=== PATIENT | female | born 1965 | race Caucasian/White ===

== ENCOUNTER 2017-07-08 09:30 | Emergency (ER) | payer BC ==
[~2017-07-08] VITALS: Ht 165.1 cm; Wt 68.7 kg
[2017-07-08 09:33] VITALS: PULSE 87; TEMP 36.7; O2SAT 99; Ht 165.1 cm; Wt 68.7 kg
[2017-07-08] MEDS ORDERED: MIRA1TAB3 PO (10:27)
--- NOTE | 2017-07-08 10:29 | DIAGNOSTIC IMAGING REPORT ---
R ANKLE MIN 3 VIEWS ROUTINE CLINICAL HISTORY: right ankle pain trauma. Pain. COMPARISON: None. DISCUSSION: Soft tissue edema over the lateral malleolus. No acute bony abnormality. The study is specifically negative for fracture or dislocation. Subtalar joint is intact. IMPRESSION: Lateral nonspecific soft tissue edema. No acute bony abnormality The above report was generated using voice recognition software. It may contain grammatical, syntax or spelling errors. Electronically signed by: Cam Reed M.D. 07/08/2017 10:27 AM Dictated Date/Time: 07/08/2017 10:26 AM
--- NOTE | 2017-07-08 10:45 | EMERGENCY ROOM VISIT NOTE ---
ED Visit Note First contact with patient: 09:41 CHIEF COMPLAINT: Right Ankle pain HISTORY OF PRESENT ILLNESS: This 51-year-old female patient presents to the emergency department, ambulatory, one day after sustaining an injury to the right ankle and foot with a twisting, inversion motion while walking down the steps. The patient states she missed the last step, and injured her ankle. She did not fall. The patient complains of only tenderness on palpation along the outside of the ankle. The patient denies pain of the foot. The patient rates the pain as minimal and 2/10. The patient is able to bear weight on the foot.Pain is worse with movement, weight bearing, palpation, and the dependent position. No knee pain, the patient is able to move their toes. No numbness or weakness of the foot, no laceration. The patient has not had a previous fracture to this ankle. The patient has taken Advil for the pain. The patient denies any other injury. REVIEW OF SYSTEMS: A 6 system review of systems was completed with positives and pertinent negatives listed in the HPI. ALLERGIES: None MEDICATIONS: Myrbetriq PMH: None SOCIAL HISTORY: The patient lives locally with family. She denies drug, alcohol , tobacco use. PHYSICAL EXAM: Vital Signs: Reviewed Nurse's notes, vital signs stable. GENERAL : This is a 51-year-old female, no acute distress, but appears in pain, well- developed, well-nourished. MENTAL STATUS: Alert, oriented to person place and time, and cooperative. MUSCULOSKELETAL: The left ankle is not swollen, but is mildly tender over the lateral malleolus, but the skin is intact and there is no ligamentous instability. There is no fifth metatarsal tenderness. There is no tenderness over the rest of the foot. There is no calf or tibia/fibular tenderness. There is no visual deformity. The foot and toes are warm and well- perfused. Dorsalis pedis pulse 2+. Sensation to pain and light touch is intact. Capillary refill less than 2 seconds. RADIOLOGY: R ANKLE MIN 3 VIEWS ROUTINE CLINICAL HISTORY: right ankle pain trauma. Pain. COMPARISON: None. DISCUSSION: Soft tissue edema over the lateral malleolus. No acute bony abnormality. The study is specifically negative for fracture or dislocation. Subtalar joint is intact. IMPRESSION: Lateral nonspecific soft tissue edema. No acute bony abnormality The above report was generated using voice recognition software. It may contain grammatical, syntax or spelling errors. Electronically signed by: Cam Reed M.D. 07/08/2017 10:27 AM Dictated Date/Time: 07/08/2017 10:26 AM EMERGENCY DEPARTMENT COURSE: I examined the patient. She was offered pain medication and declines. X-rays of the Right ankle were reviewed by myself and read by radiology and reveal no acute fracture. The patient was offered a gel splint and crutches, but declines. The patient was discharged home in good condition. DIFFERENTIAL DIAGNOSIS: Sprain, strain, fracture, contusion, avulsion fracture, and others DIAGNOSIS: Right ankle sprain Current/Historical Medications Scheduled Mirabegron (Myrbetriq Er), 50 MG PO DAILY Allergies Coded Allergies: No Known Allergies (Unverified , 07/08/17) Vital Signs Date Time Temp Pulse Resp B/P (MAP) Pulse Ox O2 Delivery O2 Flow Rate FiO2 07/08/17 11:01 135/76 07/08/17 09:33 36.7 87 18 120/77 99 Room Air Departure Information Impression Primary Impression: Right ankle sprain Dispostion Home / Self-Care Condition GOOD Referrals Chaim Judge M.D. (PCP) Patient Instructions ED Sprain Ankle, My [facility] Additional Instructions You have been treated in the Emergency Department for an Ankle sprain. Use ice/elevation/rest to help with swelling and pain. X-ray was negative for acute fracture. For pain control, you can use the following [id number]-fvkqxht medicines (if >12 yo): Ibuprofen(Motrin, Advil) may be used for fever or pain. Use 600mg every six hours as needed. Take with food. Avoid using more than 2400mg in a 24 hour period. Do not use 2400mg per day for more than three consecutive days without physician direction. Prolonged inappropriate use can lead to stomach upset or ulcers. (AND/OR) Acetaminophen(Tylenol) may be used for fever or pain. Use 1000mg every six hours as needed. Avoid using more than 3000mg in a 24 hour period. If this is a recent injury (<24 hrs), ice can be applied to the area of pain for the first 3 days to help decrease pain and inflammation. Follow-up with your PCP within the next week, or sooner if no improvement in your symptoms. You may wrap the ankle in an ROOSEVELT wrap for comfort. Return to the Emergency Department if your current symptoms worsen despite treatment course outlined above, or if you develop any of the following symptoms : intractable pain despite aforementioned treatment course or new onset of numbness or tingling of the foot. Problem Qualifiers Primary Impression: Right ankle sprain Encounter type: initial encounter Involved ligament of ankle: unspecified ligament Qualified Codes: S93.401A - Sprain of unspecified ligament of right ankle, initial encounter
[2017-07-08 11:01] VITALS: BP 135/76
== END 2017-07-08 11:02 | disposition home or self-care (01) ==
LOC: C.EDB 09:31
DX: S93.401A Sprain of unspecified ligament of right ankle, initial encounter (principal); W10.9XXA Fall (on) (from) unspecified stairs and steps, initial encounter; Y92.9 Unspecified place or not applicable; Z79.899 Other long term (current) drug therapy

== ENCOUNTER 2023-12-26 17:17 | Observation (INO) ==
--- NOTE | 2023-12-26 17:27 | ED Triage Note ---
Date of Service December 26, 2023 Provider in Triage Author: Dee Prieto History of Present Illness This patient was briefly evaluated while in triage. An abbreviated physical exam was performed. This patient is a 58-year-old Female who presents to the ED for evaluation of chest pain and SOB mostly on the left side. Symptoms have been constant for the past couple days. She smokes, but no vaping. No personal history of blood clot. No personal history of heart problems. She took a full dose aspirin earlier today with mild improvement of her symptoms. Denies fevers, cough, or URI symptoms. Physical Exam GENERAL: Non-toxic and in no acute distress. HEENT: Pupils equal. No obvious scleral icterus. HEART: Regular rate and rhythm. LUNGS: Clear to auscultation. No accessory muscle use. ABDOMEN: Soft, non-tender. NEURO: Alert and oriented. No obvious neurological deficits on quick neuro exam. Initial orders for labs and / or imaging were placed and patient was placed in the waiting area until a bed is available. Please see further documentation for the full ED course. MDM / Impression Impression Impression: Chest pain Impression: Chest pain Qualifiers: Chest pain type: unspecified Qualified Code(s): R07.9 - Chest pain, unspecified
[2023-12-26] MEDS: SODIUM CHLORIDE 0.9% 500 ML IV STA (17:32)
[2023-12-26 17:51] LABS: Basophils # (auto) 0.05 K/uL (0.00-0.20); Basophils % (auto) 0.5 %; Eosinophils # (auto) 0.17 K/uL (0.00-0.50); Eosinophils % (auto) 1.8 %; Hematocrit (blood only) 41.3 % (37.0-47.0); Hemoglobin 13.6 g/dl (12.0-16.0); Immature Granulocytes # (auto) 0.04 K/uL (0.01-0.20); Immature Granulocytes % (auto) 0.4 %; Lymphocytes # (auto) 2.58 K/uL (1.20-3.40); Lymphocytes % (auto) 26.6 %; Mean Corpuscular Hemoglobin 28.2 pg (25.0-34.0); Mean Corpuscular Hgb Conc 32.9 g/dL (32.0-36.0); Mean Corpuscular Volume 85.5 fL (80.0-100.0); Mean Platelet Volume 9.7 fL (9.4-12.4); Monocytes # (auto) 0.52 K/uL (0.11-0.59); Monocytes % (auto) 5.4 %; Neutrophils # (auto) 6.34 K/uL (1.40-6.50); Neutrophils % (auto) 65.3 %; Platelet Count 294 K/uL (130-400); RDW Coefficient of Variation 13.5 % (11.5-14.5); RDW Standard Deviation 42.1 fL (36.4-46.3); Red Blood Count 4.83 M/uL (4.20-5.40)
[2023-12-26 18:10] LABS: Albumin Globulin Ratio 1.3 (0.9-2); Albumin Level 4.4 gm/dl (3.4-5.0); BUN Creatinine Ratio 20.5 (10-20); Bilirubin,Total 0.4 mg/dl (0.2-1.0); Calcium 9.5 mg/dl (8.6-10.3); Creatinine Clr Calc Pharmacy 76.2 ml/min; Est GFR (African American) 91.4 ml/min; Est GFR (Non-African American) 78.8 ml/min; Globulin 3.4 gm/dl (2.5-4.0); Potassium 3.7 mmol/L (3.5-5.1); Total Protein 7.8 gm/dl (6.0-8.3)
[2023-12-26 18:16] LABS: Troponin I High Sensitivity 3.7 pg/ml (0-14)
[2023-12-26 18:18] LABS: D Dimer 400 ug/L FEU (0-500); Partial Thromboplastin Time 26 Seconds (21-31); Prothrombin Time 10.4 Seconds (9.0-12.0)
--- NOTE | 2023-12-26 18:39 | XRay Report ---
XR chest 1V portable CLINICAL HISTORY: Chest pain, nonspecific TECHNIQUE: Single frontal radiograph of the chest was obtained. Comparison: Comparison is made to chest radiograph 09/11/2020 FINDINGS: No lines and tubes are seen. The cardiomediastinal silhouette is normal. The lungs are clear. No evid ence of pleural effusion or pneumothorax. IMPRESSION: No acute chest disease. ACT 112: Negative or not required by law. Electronically signed by: Saurav Lobo M.D. 12/26/2023 6:38 PM
[2023-12-26] MEDS: NITROGLYCERIN SL 0.4 MG/TAB TAB SL STA (20:09)
[2023-12-26] MEDS: ASPIRIN CHEW 324 MG PO STA (20:09)
[2023-12-26] MEDS: SODIUM CHLORIDE 0.9% 1,000 ML IV ONE (20:10)
[2023-12-26] MEDS: ALUMINUM/MAGNESIUM SUSP 30 ML UDC PO STA (20:10)
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
[2023-12-26] MEDS: OPTIRAY 320 125ml IV ONE (20:58)
--- NOTE | 2023-12-26 21:37 | CT Scan Report ---
CT angio chest PE protocol CLINICAL HISTORY: PE TECHNIQUE: Multidetector row helical CT of the chest was performed with angiographic protocol. [place] l and sagittal reformations were obtained. Coronal and sagittal MIPS were obtained from the axial mahendra a set and were submitted for review. Automated dose lowering techniques and/or adjustment according to patient size were utilized for this exam. CT DOSE: 730.16 mGy.cm Comparison: Comparison is made to chest radiograph 01/12/2024 FINDINGS: Lungs and pleura: Atelectasis versus scarring is seen in the dependent portions of the lungs. Heart and pericardium: Heart size is normal. No pericardial effusion. Vessels: No evidence of pulmonary embolism. Mediastinum and maximus: Subcentimeter lymph nodes are seen. Chest wall and lower neck: Small thyroid nodules are noted which do not require follow-up by ACR roni carroll. Abdomen: A hiatal hernia is seen. Bones: Degenerative changes in the thoracic spine. IMPRESSION: No acute abnormality and in particular no evidence of pulmonary embolus. ACT 112: Negative or not required by law. Electronically signed by: Saurav Lobo M.D. 12/26/2023 9:35 PM
[2023-12-26] MEDS ORDERED: ACETAMINOPHEN 325 MG TAB PO PRN (22:13)
[2023-12-26] MEDS ORDERED: ONDANSETRON INJ 2 MG/ML 2 ML VIAL IV PRN (22:13)
[2023-12-26] MEDS ORDERED: ALBUTEROL HFA 8 GM INHALER INH PRN (22:23)
[2023-12-26] MEDS: ENOXAPARIN INJ 40 MG/0.4 ML SYR SQ SCH (22:47)
[2023-12-26] MEDS: SODIUM BICARBONATE 650 MG TAB PO SCH (22:48)
[2023-12-26 23:22] LABS: Influenza A virus by PCR Negative (Neg); Influenza B virus by PCR Negative (Neg); RSV by PCR Negative (Neg); SARS CoV2 RNA(COVID-19) Ceph NEGATIVE (Negative)
[2023-12-26] MEDS: SODIUM BICARBONATE 650 MG TAB PO ONE (23:29)
[2023-12-26] MEDS: LIDOCAINE 5% 1 PATCH TD STA (23:32)
[2023-12-26] MEDS: CYCLOBENZAPRINE HCL 5 MG TAB PO STA (23:32)
[2023-12-27] MEDS ORDERED: IBUPROFEN 600 MG TAB PO PRN (00:30)
[2023-12-27 03:18] LABS: Appearance Urine Clear (Clear); Bilirubin Urine Negative (Negative); Blood Urine Trace (Negative); Cast Urine Automated 0-2 /lpf (0-2); Color Urine Yellow; Epithelial Cell Urine Auto 0-2 /hpf (0-2); Glucose Urine UA Negative (Negative); Ketones Urine Negative (Negative); Leukocyte Esterase Urine Negative (Negative); Nitrite Urine Positive (Negative); Protein Urine Trace (Negative); Specific Gravity Urine > 1.045 (1.000-1.030); Urobilinogen Urine Negative (Negative); WBC Urine Automated 21-50 /hpf (0-5); pH Urine 6.5 (4.5-7.5)
[2023-12-27 03:26] LABS: Bacteria Urine Automated 1+ (None Seen)
[2023-12-27 04:01] LABS: Basophils # (auto) 0.04 K/uL (0.00-0.20); Basophils % (auto) 0.5 %; Eosinophils # (auto) 0.29 K/uL (0.00-0.50); Eosinophils % (auto) 3.8 %; Hematocrit (blood only) 35.2 % (37.0-47.0); Hemoglobin 11.5 g/dl (12.0-16.0); Immature Granulocytes # (auto) 0.03 K/uL (0.01-0.20); Immature Granulocytes % (auto) 0.4 %; Lymphocytes # (auto) 3.09 K/uL (1.20-3.40); Mean Corpuscular Hgb Conc 32.7 g/dL (32.0-36.0); Mean Corpuscular Volume 85.9 fL (80.0-100.0); Mean Platelet Volume 9.9 fL (9.4-12.4); Monocytes % (auto) 5.2 %; Neutrophils # (auto) 3.88 K/uL (1.40-6.50); Neutrophils % (auto) 50.1 %; Platelet Count 245 K/uL (130-400); RDW Coefficient of Variation 13.6 % (11.5-14.5); RDW Standard Deviation 42.4 fL (36.4-46.3); White Blood Count 7.73 K/ul (4.8-10.8)
[2023-12-27 04:06] LABS: BUN Creatinine Ratio 26.8 (10-20); Calcium 8.3 mg/dl (8.6-10.3); Creatinine Clr Calc Pharmacy 117.2 ml/min; Est GFR (African American) 120.8 ml/min; Est GFR (Non-African American) 104.2 ml/min; Potassium 3.4 mmol/L (3.5-5.1)
[2023-12-27] MEDS: LORATADINE 10 MG TAB PO SCH (08:37)
[2023-12-27] MEDS: CYCLOBENZAPRINE HCL 5 MG TAB PO SCH (08:37)
[2023-12-27] MEDS: SODIUM BICARBONATE 650 MG TAB PO SCH (08:38)
[2023-12-27] MEDS: POTASSIUM CHLORIDE CRTAB 20 MEQ TABCR PO STA (11:18)
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
[2023-12-27] MEDS: METOPROLOL TARTRATE 1 MG/ML VIAL IV ONE (14:25)
[2023-12-27] MEDS: DOBUTamine HCL 12.5 MG/ML 20 ML VIAL IV ONE (14:25)
[2023-12-27] MEDS: ATROPINE SULFATE 0.1 MG/ML 10ML SYR IV ONE (14:25)
--- NOTE | 2023-12-27 17:20 | XCELERA ---
[id number]
--- NOTE | 2023-12-27 17:22 | Discharge Summary ---
Discharge Summary Date of Service December 27, 2023 Principal Dx & Hospital Course #1 = Principal Diagnosis (1) Chest pain: Pleuritic chest pain and SOB x 3 days Troponin normal x 2 EKG normal sinus rhythm without acute changes Chest CTA did not show pulmonary embolism pericardial effusion or other changes within the chest COVID, flu, RSV ordered, negative Discussed alternatives this is not associate with any dysphagia dyspepsia or dyne aphasia. She was seeing her chiropractor in the past and does have multiple skeletal complaints likely musculoskeletal. The patient is large degree of concern we did pursue stress testing. Due to foot drop patient did not walk on a treadmill subsequently dobutamine stress echo was ordered as results were negative with normal echocardiogram normal blood pressure response normal wall motion movement. Subsequently we ruled out chest pain being from cardiac or pulmonary source. He likely could be musculoskeletal recommend follow-up with primary care provider she requested a primary. Provider from [place] [id number] was arranged (2) Tobacco use: Current tobacco cigarette smoker; 1 PPD Smoking cessation offered especially in the context of being worried about having coronary disease Admission HPI Per Admitting Provider Monica is a 58-year-old female with PMH of nephrolithiasis and neurogenic bladder. She presented for constant chest pain and SOB x 3 days. The pain is located under her left breast; no radiation to the left shoulder left arm or back. SOB is both at rest and with exertion; this is new for her. Chest pain and SOB are positional; worse when laying flat on her back. CP is pleuritic; patient reports that even shallow breaths are now painful. Patient took aspirin today at 1330 for the pain, which did not help. Nitro in the ED did not alleviate her pain. Patient took all of her regular medications last night; no recent change in medications. No PMH of [place], DVT/PE, or stroke. No prior episodes like this one. Patient is a current tobacco cigarette smoker; 1 PPD. She does endorse occasional alcohol use; she drinks around 2 martinis on Tuesday. No supplemental oxygen at home. No sick contacts. No recent injuries or trauma to the chest wall. Patient is hypertensive at 142/91 and tachycardic around 101 bpm at time of admission. ED course: Aspirin 324 mg p.o. Nitrostat 0.4 mg SL Maalox 15 mL p.o. NSS 1500 mL IV ROS: Patient endorses night-sweats (ongoing), left-sided chest pain, SOB both at exertion and with rest, and pleuritic CP. Patient denies fever, chills, dizziness, lightheadedness, CHOUDHARY, changes in vision, left arm/shoulder pain, cough, hemoptysis, abdominal pain, N/V/D, changes in urinary/bowel habits, or numbness/tingling/pain in the arms or legs. Discharge Exam Please see today's progress note examination was normal Updated Medication List Medication Instructions Recorded Confirmed Type albuterol sulfate 90 mcg/actuation 1 inh inhalation Q6 PRN SHORT OF 05/17/19 12/26/23 History breath activated powder inhaler BREATH lactobacillus combination no.4 3 3,000 mmu cells PO QPM 05/17/19 12/26/23 History billion cell capsule (Probiotic) Liver Supplement 1 cap PO QPM 09/10/20 12/26/23 History loratadine 10 mg tablet (Claritin) 10 mg PO DAILY 12/30/20 12/26/23 History calcium carbonate 1,000 mg PO DAILY 04/26/23 12/12/23 History sodium bicarbonate 650 mg tablet 650 mg PO HS 12/26/23 12/26/23 History Hospital Stay Data Consultations 12/26/23 20:02 ED Decision to Admit Stat Diagnostic Imagining Performed 12/26/23 20:43 CT for pulmonary embolism PE [CT angio chest PE protocol] Stat Pending Results Patient Have Any Pending Studies at Discharge: No Discharge Instructions Given to Patient (Per Discharging Provider) congratulations you did have a normal stress test as you requested we have made an appointment with a [facility] provider, please follow up to continue to evuate your symptoms please strongly consider stopping smoking Total Time Total Time Spent Total Time Spent (In Minutes): It required greater than 30 minutes to prepare this patient for discharge. Coding Level of Care Code 29872 INP/OBS DISCH >30 MIN Diagnoses Chest pain R07.9 Chest pain type: unspecified Tobacco use Z72.0
--- NOTE | 2023-12-28 06:23 | Electrocardiogram Report ---
Test Reason : Blood Pressure : / mmHG Vent. Rate : 102 BPM Atrial Rate : 102 BPM P-R Int : 130 ms QRS Dur : 070 ms QT Int : 346 ms P-R-T Axes : 063 040 047 degrees QTc Int : 450 ms Sinus tachycardia Otherwise normal ECG When compared with ECG of 11-SEP-2020 10:21, No significant change was found Confirmed by Vinny Ackerman ([id number]) on 12/28/2023 6:23:11 AM Referred By: REFERRED SELF Confirmed By:Vinny Ackerman
--- NOTE | 2023-12-28 22:35 | Electrocardiogram Report ---
Test Reason : Blood Pressure : / mmHG Vent. Rate : 091 BPM Atrial Rate : 091 BPM P-R Int : 120 ms QRS Dur : 084 ms QT Int : 376 ms P-R-T Axes : 040 036 048 degrees QTc Int : 462 ms Normal sinus rhythm Normal ECG When compared with ECG of 26-DEC-2023 17:30, No significant change was found Confirmed by Vinny Ackerman ([id number]) on 12/28/2023 10:35:23 PM Referred By: REFERRED SELF Confirmed By:Vinny Ackerman
== END 2023-12-27 17:40 | disposition home or self-care (01) ==
LOC: ED 17:17 → EDINP 20:55 → SUATTDRO 20:55 → INTOOBSV 20:55 → EDINP 22:13

== ENCOUNTER 2025-01-22 11:59 | Inpatient (IN) ==
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
[2025-01-22] MEDS: SODIUM CHLORIDE 0.9% 500 ML IV ONE (12:34)
[2025-01-22] MEDS: ONDANSETRON INJ 2 MG/ML 2 ML VIAL ONE (12:34)
[2025-01-22] MEDS: ONDANSETRON INJ 2 MG/ML 2 ML VIAL IV STA (12:35)
[2025-01-22 12:54] LABS: Hematocrit (blood only) 43.6 % (37.0-47.0); Hemoglobin 14.2 g/dl (12.0-16.0); Immature Granulocytes # (auto) 0.17 K/uL (0.01-0.20); Immature Granulocytes % (auto) 0.9 %; Mean Corpuscular Hemoglobin 27.6 pg (25.0-34.0); Mean Corpuscular Volume 84.8 fL (80.0-100.0); Platelet Count 292 K/uL (130-400); RDW Standard Deviation 42.7 fL (36.4-46.3); Red Blood Count 5.14 M/uL (4.20-5.40); White Blood Count 19.60 K/ul (4.8-10.8)
--- NOTE | 2025-01-22 13:11 | CT Scan Report ---
ABDOMEN AND PELVIS CT WITHOUT CONTRAST CT DOSE: 919.23 mGy.cm HISTORY: Acute has abdominal pain with urinary retention Urinary retention POD #1 R laser litho w/ s tent TECHNIQUE: Multiaxial CT images of the abdomen and pelvis were performed without contrast. A dose lo wering technique was utilized adhering to the principles of ALARA. COMPARISON STUDY: CT 03/13/2019, August 05, 2021 FINDINGS: Clear lung bases. No pneumatosis or pneumoperitoneum. The unenhanced spleen, pancreas, gall bladder and adrenal glands are unremarkable. There are a few hypodense foci within the liver suggesti ve of probable cysts measuring up to 1.5 cm. Numerous nonobstructing calculi of the kidneys measure up to approximately 5 mm bilaterally. There is mild right-sided hydroureteronephrosis with a ureteral stent in place. No ureteral calculi. Air note d within the superior pole collecting system of the right kidney. Mild associated perinephric and per iureteral stranding. There are a few scattered hypodense foci of the right kidney measuring up to 1.6 cm, possibly cysts. Decompressed bladder with Fabian catheter in place. Small amount of intraluminal air. Atherosclerosis of the aorta. Subcentimeter retroperitoneal nodes. Hysterectomy. Moderate coloni c fecal retention. 10 cm segment of mid transverse colon demonstrates circumferential wall thickening with adjacent pericolonic stranding and luminal narrowing. Mesenteric lymph nodes measure up to 9 x 8 mm. Normal appendix. No acute fracture. 12 mm anterolisthesis L5 on S1 with chronic pars defects. IMPRESSION: 1. Right ureteral stent in place with mild hydroureteronephrosis and perinephric inflammatory strandi ng. Correlate with urinalysis. 2. Numerous nonobstructing bilateral renal calculi. No ureteral calculi identified. 3. Wall thickening of the mid transverse colon is suspicious for a nonspecific colitis with mild melanie cent subcentimeter lymph nodes. Follow-up colonoscopy recommended to exclude a mucosal malignancy. 4. No bowel obstruction or pneumoperitoneum. ACT 112: Negative or not required by law. The above report was generated using voice recognition software. It may contain grammatical, syntax o r spelling errors. Electronically signed by: David West M.D. 01/22/2025 1:10 PM
[2025-01-22 13:13] LABS: Alanine Aminotransferase 13.0 U/L (7-52); Albumin Globulin Ratio 1.4 (0.9-2); Alkaline Phosphatase 138.0 U/L (34-104); Anion Gap 12.0 (3-11); Bilirubin,Total 0.5 mg/dl (0.2-1.0); Blood Urea Nitrogen 16.0 mg/dl (6-23); Calcium 9.7 mg/dl (8.6-10.3); Carbon Dioxide 24.0 mmol/L (21-32); Chloride 100.0 mmol/L (98-107); Creatinine Clr Calc Pharmacy 69.1 ml/min; Globulin 3.7 gm/dl (2.5-4.0); Glucose 102.0 mg/dl (70-99(Fasting)); Lipase 161.0 U/L (11-82); Potassium 3.3 mmol/L (3.5-5.1); Sodium 136.0 mmol/L (136-145); Total Protein 8.7 gm/dl (6.0-8.3)
[2025-01-22 13:39] LABS: Appearance Urine Cloudy (Clear); Glucose Urine UA 1+ (Negative)
[2025-01-22] MEDS: cefTRIAXone SODIUM 2,000 MG/50 ML BAG IV STA (14:14)
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
[2025-01-22] MEDS ORDERED: POLYETHYLENE (MIRALAX) 17 GM PACK PO PRN (17:05)
[2025-01-22] MEDS ORDERED: ONDANSETRON INJ 2 MG/ML 2 ML VIAL IV PRN (17:05)
[2025-01-22] MEDS: SODIUM CHLORIDE 0.9% 1,000 ML IV SCH (18:25)
[2025-01-22] MEDS: ACETAMINOPHEN 325 MG TAB PO PRN (19:23)
[2025-01-22] MEDS: TAMSULOSIN HCL 0.4 MG CAP PO SCH (19:23)
[2025-01-23] MEDS: IBUPROFEN 200 MG TAB PO STA (00:22)
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
[2025-01-23 07:45] LABS: Hematocrit (blood only) 32.4 % (37.0-47.0); Hemoglobin 10.8 g/dl (12.0-16.0); Immature Granulocytes # (auto) 0.10 K/uL (0.01-0.20); Immature Granulocytes % (auto) 0.8 %; Mean Corpuscular Hemoglobin 28.4 pg (25.0-34.0); Mean Corpuscular Volume 85.3 fL (80.0-100.0); Platelet Count 182 K/uL (130-400); RDW Standard Deviation 43.4 fL (36.4-46.3); Red Blood Count 3.80 M/uL (4.20-5.40); White Blood Count 12.35 K/ul (4.8-10.8)
[2025-01-23 07:52] LABS: Alanine Aminotransferase 9.0 U/L (7-52); Albumin Globulin Ratio 1.3 (0.9-2); Alkaline Phosphatase 86.0 U/L (34-104); Anion Gap 6.0 (3-11); Bilirubin,Total 0.4 mg/dl (0.2-1.0); Blood Urea Nitrogen 16.0 mg/dl (6-23); Calcium 8.0 mg/dl (8.6-10.3); Carbon Dioxide 26.0 mmol/L (21-32); Chloride 107.0 mmol/L (98-107); Creatinine Clr Calc Pharmacy 64.5 ml/min; Globulin 2.5 gm/dl (2.5-4.0); Glucose 111.0 mg/dl (70-99(Fasting)); Lipase 17.0 U/L (11-82); Potassium 3.8 mmol/L (3.5-5.1); Sodium 139.0 mmol/L (136-145); Total Protein 5.7 gm/dl (6.0-8.3)
--- NOTE | 2025-01-23 10:03 | Urology Progress Note ---
Date of Service January 23, 2025 Assessment & Plan (1) Complicated urinary tract infection: (2) Status post laser lithotripsy of ureteral calculus: (3) Urinary retention: Plan: 59-year-old female with history of bilateral nephrolithiasis recently status post right ureteroscopy for stone treatment on 01/21/2025 admitted for complicated UTI. Patient currently afebrile, hemodynamically stable Febrile yesterday evening, 38.4 Labs reviewedcreatinine 0.95, WBC downtrending 12.35 Urinalysis on arrival was suggestive of infection Urine culture pending Continue broad-spectrum antibiotics and narrow per sensitivities when available Maintain Fabian catheter for management of urinary retention, likely maintain upon discharge to follow-up with urology No acute intervention warranted at this time Continue supportive care, antibiotics and medical management per hospital medicine service We will arrange outpatient follow-up with our service for ongoing management will sign off, please contact her service with any additional questions or concerns Admission and Anticipated Discharge Date Admission Date: January 22, 2025 Subjective Patient seen and examined at bedside this morning No acute issues overnight Febrile yesterday evening, 38.4 Denies fever or chills at present Subjectively feeling better this morning Reports mild right flank discomfort Fabian intact Review of Systems Constitutional: as per Subjective / HPI Genitourinary: as per Subjective / HPI Physical Exam Constitutional: well developed and well nourished; no acute distress Respiratory: normal respiratory effort; no respiratory distress and no labored breathing Gastrointestinal (Abdomen): Inspection/Auscultation: abdomen normal to inspection Musculoskeletal: Head/Neck/Chest: normocephalic Neurologic: moves all extremities and awake Psychiatric: Orientation: alert and oriented x 3 Genitourinary: Fabian draining slightly blood-tinged urine, small clot within tubing, easily passed through Results & Data Vital Signs (Past 12 Hours) Vital Signs Temp Pulse Pulse Resp BP Pulse Ox O2 Del Method 01/23/25 08:56 76 01/23/25 07:25 36.7 C 72 18 92/58 L 93 Room Air 01/23/25 03:48 36.6 C 71 18 91/58 L 97 Room Air 01/23/25 00:02 37.1 C 93 H 20 91/52 L 95 Room Air 01/22/25 22:33 98 H PG Care Time/CCT Total # of Minutes Spent Total Time Spent with Patient: Total time spent is greater than 50% in coordination of care (as documented) at patient's floor/unit and/or counseling patient: Coding Level of Care Code 02481 SUB INP/OBS CARE 08/18MIN Diagnoses Complicated urinary tract infection N39.0 Status post laser lithotripsy of ureteral calculus Z98.890 Urinary retention R33.9
[2025-01-23] MEDS ORDERED: cefTRIAXone SODIUM 1,000 MG/50 ML BAG IV SCH (14:00)
[2025-01-23] MEDS: CEFEPIME 2000MG 2,000 MG/20 ML SYR IV SCH (14:22)
--- NOTE | 2025-01-23 14:26 | Electrocardiogram Report ---
Test Reason : Blood Pressure : */* mmHG Vent. Rate : 121 BPM Atrial Rate : 121 BPM P-R Int : 120 ms QRS Dur : 84 ms QT Int : 300 ms P-R-T Axes : 49 48 27 degrees QTcB Int : 426 ms Sinus tachycardia Otherwise normal ECG When compared with ECG of 26-Dec-2023 20:14, No significant change was found Confirmed by José Luis Casey ([id number]) on 01/23/2025 2:26:33 PM Referred By: REFERRED SELF Confirmed By: José Luis Casey
--- NOTE | 2025-01-23 15:40 | Billing Data ---
Date of Service January 23, 2025 Coding Level of Care Code 63420 SUB INP/OBS CARE
[2025-01-23] MEDS: IBUPROFEN 600 MG TAB PO PRN (16:27)
[2025-01-23] MEDS: LACTATED RINGER'S 500 ML IV ONE (18:25)
[2025-01-24 06:25] LABS: Hematocrit (blood only) 31.6 % (37.0-47.0); Hemoglobin 10.5 g/dl (12.0-16.0); Mean Corpuscular Hemoglobin 28.3 pg (25.0-34.0); Mean Corpuscular Volume 85.2 fL (80.0-100.0); Platelet Count 161 K/uL (130-400); RDW Standard Deviation 43.1 fL (36.4-46.3); Red Blood Count 3.71 M/uL (4.20-5.40); White Blood Count 9.61 K/ul (4.8-10.8)
[2025-01-24 06:44] LABS: Anion Gap 6.0 (3-11); Blood Urea Nitrogen 17.0 mg/dl (6-23); Calcium 8.0 mg/dl (8.6-10.3); Carbon Dioxide 24.0 mmol/L (21-32); Chloride 108.0 mmol/L (98-107); Creatinine Clr Calc Pharmacy 83.8 ml/min; Glucose 106.0 mg/dl (70-99(Fasting)); Potassium 3.6 mmol/L (3.5-5.1); Sodium 138.0 mmol/L (136-145)
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
[2025-01-24] MEDS ORDERED: diphenhydrAMINE 50 MG/ML VIAL IV PRN (10:14)
[2025-01-24] MEDS ORDERED: TRIAMCINOLONE ACET 0.1% CR 80 GM TUBE EXT PRN (10:17)
[2025-01-24 11:24] VITALS: O2SAT 98
[2025-01-24] MEDS: CIPROFLOXACIN 500 MG TAB PO STA ×2 (13:29→17:39)
[2025-01-24 15:20] VITALS: BP 124/77; PULSE 94; RESP 20; TEMP 99.9
[2025-01-24] MEDS ORDERED: CALCIUM CARBONATE 500 MG CHEWABLE TAB PO PRN (16:56)
[2025-01-24] MEDS: FAMOTIDINE 20 MG TAB PO PRN (17:13)
--- NOTE | 2025-01-24 17:20 | Billing Data ---
Date of Service January 24, 2025 Coding Level of Care Code 35843 IN/OBS DISCH 30 MIN/LESS
== END 2025-01-24 20:24 | disposition home or self-care (01) | DRG 862 ==
LOC: ED 11:59 → SUATTDRO 15:10 → 2W 15:10

== ENCOUNTER 2025-05-28 12:13 | Observation (INO) ==
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
[2025-05-28 13:01] LABS: Appearance Urine Clear (Clear); Bacteria Urine Automated 4+ (None Seen); Cast Urine Automated 0-2 /lpf (0-2); Epithelial Cell Urine Auto 0-2 /hpf (0-2); Glucose Urine UA Negative (Negative); RBC Urine Automated 0-2 /hpf (0-2); WBC Urine Automated 21-50 /hpf (0-5)
[2025-05-28 13:11] LABS: Hematocrit (blood only) 42.3 % (37.0-47.0); Hemoglobin 14.0 g/dl (12.0-16.0); Immature Granulocytes # (auto) 0.04 K/uL (0.01-0.20); Immature Granulocytes % (auto) 0.5 %; Mean Corpuscular Hemoglobin 27.9 pg (25.0-34.0); Mean Corpuscular Volume 84.3 fL (80.0-100.0); Platelet Count 293 K/uL (130-400); RDW Standard Deviation 42.5 fL (36.4-46.3); Red Blood Count 5.02 M/uL (4.20-5.40); White Blood Count 7.30 K/ul (4.8-10.8)
[2025-05-28 13:30] LABS: Alanine Aminotransferase 12.0 U/L (7-52); Albumin Globulin Ratio 1.2 (0.9-2); Albumin Level 4.6 gm/dl (3.4-5.0); Alkaline Phosphatase 139.0 U/L (34-104); Anion Gap 9.0 (3-11); Bilirubin,Total 0.4 mg/dl (0.2-1.0); Blood Urea Nitrogen 11.0 mg/dl (6-23); Calcium 9.9 mg/dl (8.6-10.3); Carbon Dioxide 26.0 mmol/L (21-32); Chloride 102.0 mmol/L (98-107); Creatinine Clr Calc Pharmacy 86.3 ml/min; Globulin 3.9 gm/dl (2.5-4.0); Glucose 93.0 mg/dl (70-99(Fasting)); Lipase 84.0 U/L (11-82); Potassium 3.7 mmol/L (3.5-5.1); Sodium 137.0 mmol/L (136-145); Total Protein 8.5 gm/dl (6.0-8.3)
[2025-05-28] MEDS: CEFEPIME 2000MG 2,000 MG/20 ML SYR IV STA (13:45)
[2025-05-28] MEDS ORDERED: ACETAMINOPHEN 325 MG TAB PO PRN (14:34)
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
[2025-05-28] MEDS: CALCIUM 600MG + VIT D 400 IU TAB PO SCH (20:23)
[2025-05-28] MEDS: SODIUM BICARBONATE 650 MG TAB PO SCH (20:23)
[2025-05-28] MEDS: ARTIFICIAL TEARS OP SCH (21:39)
[2025-05-29] MEDS: CEFEPIME 2000MG 2,000 MG/20 ML SYR IV SCH (02:01)
[2025-05-29] MEDS ORDERED: CEFEPIME 2 GM VIAL IV SCH (02:30)
[2025-05-29 07:35] VITALS: TEMP 97.9
[2025-05-29 07:49] LABS: Hematocrit (blood only) 39.2 % (37.0-47.0); Hemoglobin 13.1 g/dl (12.0-16.0); Immature Granulocytes # (auto) 0.02 K/uL (0.01-0.20); Immature Granulocytes % (auto) 0.4 %; Mean Corpuscular Hemoglobin 28.0 pg (25.0-34.0); Mean Corpuscular Volume 83.8 fL (80.0-100.0); Platelet Count 253 K/uL (130-400); RDW Standard Deviation 42.2 fL (36.4-46.3); Red Blood Count 4.68 M/uL (4.20-5.40); White Blood Count 5.68 K/ul (4.8-10.8)
[2025-05-29 08:20] LABS: Alanine Aminotransferase 10.0 U/L (7-52); Albumin Globulin Ratio 1.2 (0.9-2); Albumin Level 4.1 gm/dl (3.4-5.0); Alkaline Phosphatase 123.0 U/L (34-104); Anion Gap 5.0 (3-11); Bilirubin,Total 0.4 mg/dl (0.2-1.0); Blood Urea Nitrogen 15.0 mg/dl (6-23); Calcium 9.8 mg/dl (8.6-10.3); Carbon Dioxide 30.0 mmol/L (21-32); Chloride 104.0 mmol/L (98-107); Creatinine Clr Calc Pharmacy 77.6 ml/min; Globulin 3.3 gm/dl (2.5-4.0); Glucose 94.0 mg/dl (70-99(Fasting)); Potassium 4.5 mmol/L (3.5-5.1); Sodium 139.0 mmol/L (136-145); Total Protein 7.4 gm/dl (6.0-8.3)
[2025-05-29 08:35] LABS: Thyroid Stimulating Hormone 1.424 uIu/ml (0.300-4.500)
[2025-05-29] MEDS: NON-FORMULARY PATIENT'S OWN MED PO SCH (18:10)
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
[2025-05-30 07:27] VITALS: BP 122/75; PULSE 75; RESP 16; O2SAT 97
[2025-05-30] MEDS: ERTAPENEM 1000MG 1,000 MG/10 ML SYR IV SCH (11:07)
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
--- NOTE | 2025-06-01 12:13 | Communication Note ---
Date of Service: June 01, 2025 Received a call from irish Carrillo who said that the Pseudomonas is not sensitive to ertapenem that she was sent to the [facility] on. I made arrangements for the patient to receive 1 dose of IV gentamicin at the [facility] on 06/02 and then that we will complete a 3-day course of antibiotics for simple cystitis. She received 2 days of cefepime IV in the hospital. I discussed this with the patient. The patient reports she has no urinary symptoms at all, no further urinary incontinence which was originally her only symptom of a UTI. She denies fevers, flank pain, fatigue. She is otherwise doing well. The [facility] will then remove her ultrasound-guided peripheral IV after the dose of gentamicin on 06/02.
== END 2025-05-30 13:46 | disposition home or self-care (01) | DRG 690 ==
LOC: ED 12:13 → 3N 14:34 → SUATTDRO 14:34 → INTOOBSV 14:34 → 3N 15:54